=== PATIENT | female | born 1950 | race Caucasian/White ===

== ENCOUNTER → 2019-12-14 | Outpatient (CLI) | payer MEDICARE ==
[~2019-12-14] MED LIST: CEPHALEXIN500 MG PO; CITALOPRAM HBR10 MG PO; FOLIC ACID1 MG PO; HYOSCYAMINE0.125 MG PO; LEXAPRO10 MG PO; METHOTREXATE2.5 MG PO; NIFEDICAL XL30 MG PO; ONE DAILY FOR1 EACH PO; PHENAZOPYRIDIN100 MG PO; VITAMIN A PO
== END ==
LOC: US 12:35
PROVIDERS: ATTEND Obstetrics & Gynecology Obstetrics
DX: N63.10 Unspecified lump in the right breast, unspecified quadrant (principal)